=== PATIENT | female | born 1975 | race Two or more races ===

== ENCOUNTER → 2018-02-07 | Emergency (ER) | payer MEDICAID ==
[~2018-02-07] VITALS: Ht 162.6 cm; Wt 61.2 kg
[2018-02-07 13:36] VITALS: BP 129/80
== END ==
LOC: ER 13:14
DX: J02.0 Streptococcal pharyngitis (principal); R59.1 Generalized enlarged lymph nodes; F12.10 Cannabis abuse, uncomplicated
CPT/HCPCS: 99283; 99406; A4606; Z7610

== ENCOUNTER 2018-02-08 10:36 | Emergency (ER) | payer MEDICAID ==
[~2018-02-08] VITALS: Ht 162.6 cm; Wt 61.2 kg
[2018-02-08 10:36] VITALS: BP 137/88
== END 2018-02-08 11:05 | disposition home or self-care (01) ==
LOC: ER 10:38
DX: J02.9 Acute pharyngitis, unspecified (principal); D64.9 Anemia, unspecified
CPT/HCPCS: 87070; 99283; A4606; Z7610

== ENCOUNTER 2018-12-26 19:32 | Emergency (ER) | payer MEDICAID ==
[~2018-12-26] VITALS: Ht 165.1 cm; Wt 63.5 kg
--- NOTE | 2018-12-26 19:40 | NUR ---
PT BIBSELF C/O RASH/HIVES ON HEAD/NECK/ABD/BILAT ARMS X 1 DAY. REDNESS NOTED ON CHEST. PATIENT DENIES SOB. PT AOX4. NAD NOTED. RESP EVEN AND UNLABORED. PT IN BED 10. WILL CONTINUE TO MONITOR.
[2018-12-26] MEDS ORDERED: methylPREDNISolone SOD SUCC 125 MG/2ML VIAL ONE (19:57)
[2018-12-26] MEDS ORDERED: diphenhydrAMINE HCL 50 MG/ML VIAL ONE (19:57)
[2018-12-26] MEDS ORDERED: FAMOTIDINE/PF INJ 20 MG/2 ML VIAL IV ONE ×2 (19:57→20:00)
[2018-12-26] MEDS ORDERED: diphenhydrAMINE HCL 50 MG/ML VIAL IV ONE (20:00)
[2018-12-26] MEDS ORDERED: methylPREDNISolone SOD SUCC 125 MG/2ML VIAL IV ONE (20:00)
[2018-12-26] MEDS ORDERED: IV NS 0.9% 1,000 ML BAG IV ONE (20:00)
--- NOTE | 2018-12-26 21:06 | NUR ---
Patient ambulatory w/ steady gait, resp even & unlabored w/ nad noted. IV removed. Catheter intact and site benign. Pressure and 4x4 applied to site. No bleeding noted.Patient discharged to home in stable condition. Written and verbal after care instructions given. Patient verbalizes understanding of instruction.
[2018-12-26 21:07] VITALS: BP 124/76
== END 2018-12-26 21:09 | disposition home or self-care (01) ==
LOC: ER 19:41
DX: T78.40XA Allergy, unspecified, initial encounter (principal); D64.9 Anemia, unspecified; X58.XXXA Exposure to other specified factors, initial encounter
CPT/HCPCS: 96374; 96375; 99283; J1200; J2930; J3490; J7030

== ENCOUNTER 2019-09-14 15:35 | Emergency (ER) | payer MEDICAID ==
[~2019-09-14] VITALS: Ht 162.6 cm; Wt 59.0 kg
--- NOTE | 2019-09-14 15:52 | NUR ---
cough, body aches, chills, fever x 1 month worsening the last 2 weeks. FEBRILE UPON ARRIVAL. ALSO C/O SORE THROAT. NO ACUTE DISTRESS NOTED. DENIES SOB, PAIN, DIZZINESS, N/V. MADE COMFORTABLE AND READY FOR EVAL.
--- NOTE | 2019-09-14 16:10 | NUR ---
XRAY AT BEDSIDE
[2019-09-14] MEDS ORDERED: ACETAMINOPHEN ES 500 MG TABLET ONE (16:11)
[2019-09-14] MEDS ORDERED: IBUPROFEN 400 MG TABLET ONE (16:11)
--- NOTE | 2019-09-14 16:16 | NUR ---
FLU AND STREP SWAB SENT TO STAT LAB
[2019-09-14] MEDS: ACETAMINOPHEN ES 500 MG TABLET PO ONE (16:26)
[2019-09-14] MEDS: IBUPROFEN 400 MG TABLET PO ONE (16:26)
--- NOTE | 2019-09-14 17:44 | NUR ---
Patient discharged to home in stable condition. Written and verbal after care instructions given. Patient verbalizes understanding of instruction.
[2019-09-14 17:46] VITALS: BP 127/76
== END 2019-09-14 17:46 | disposition home or self-care (01) ==
LOC: ER 15:38
DX: J10.1 Influenza due to other identified influenza virus with other respiratory manifestations (principal); Z98.890 Other specified postprocedural states
CPT/HCPCS: 71045-TC; 86403-TC; 87070-TC